=== PATIENT | male | born 1995 | race Hispanic/Latino ===

== ENCOUNTER 2022-05-23 08:52 | Emergency (ER) | payer SELFPAY ==
[~2022-05-23] VITALS: Ht 162.6 cm; Wt 100.0 kg
[2022-05-23 09:07] VITALS: BP 143/85
[2022-05-23 09:15] VITALS: BP 141/94
[2022-05-23 09:30] VITALS: BP 134/85
[2022-05-23] MEDS ORDERED: FLOXIN OTIC0.3 % AU (09:30)
[2022-05-23 09:45] VITALS: BP 126/81
== END 2022-05-23 09:59 | disposition home or self-care (01) | DRG 156 ==
LOC: ED 08:52
DX: H60.93 Unspecified otitis externa, bilateral (principal)